=== PATIENT | female | born 1990 ===

== ENCOUNTER → 2021-01-12 17:48 | Outpatient (CLI) | payer OTHER, MEDICAID, SELFPAY ==
[2021-01-12 20:13] LABS: Influenza A - CEPHEID Flu A NEGATIVE (NEGATIVE); Influenza B - CEPHEID Flu B NEGATIVE (NEGATIVE)
[2021-01-12 20:26] LABS: COVID-19 CEPHEID PCR (VTM/NP) Negative (Negative)
== END ==
PROVIDERS: Referring Provider Physician Assistant; Visit Provider Physician Assistant
DX: Z20.822 Contact with and (suspected) exposure to COVID-19 (principal); J06.9 Acute upper respiratory infection, unspecified
CPT/HCPCS: 87502; U0003

== ENCOUNTER → 2021-02-16 16:27 | Outpatient (CLI) | payer OTHER, SELFPAY ==
[2021-02-16 17:48] LABS: Influenza A - CEPHEID Flu A NEGATIVE (NEGATIVE); Influenza B - CEPHEID Flu B NEGATIVE (NEGATIVE)
[2021-02-16 17:55] LABS: COVID19 - ADMIT (NP swab/PCR) POSITIVE (Negative)
== END ==
PROVIDERS: Visit Provider Physician Assistant
DX: Z20.822 Contact with and (suspected) exposure to COVID-19 (principal); R50.9 Fever, unspecified; R52 Pain, unspecified
CPT/HCPCS: 87502; U0003